=== PATIENT | female | born 1995 | race American Indian/Alaskan Native ===

== ENCOUNTER 2016-12-04 00:17 | Emergency (ER) | payer MEDICAID ==
[2016-12-04 00:21] VITALS: BMI 21.4
[2016-12-04 00:24] VITALS: RESP 16; TEMP 98.2
--- NOTE | 2016-12-04 01:55 | ED PDOC ---
Arrival/HPI - General Chief Complaint: ENT Problem Time Seen by Provider: 12/04/16 01:35 Historian: Patient - History of Present Illness Narrative History of Present Illness (Text): 12/04/16 02:24 21-year-old female presents today with a one-day history of sore throat and pain with swallowing. Denies fevers or chills. No chest pain or shortness of breath. 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 No medications have been taken for pain at home. Patient denies trismus or drooling. Denies cough. Symptom Onset: Gradual Symptom Course: Worsening Quality: Burning Severity Level: 3 Past Medical History - Provider Review Nursing Documentation Reviewed: Yes - Travel History Have you recently traveled outside [place] w/in the past 3 mons?: No - Past History Past History: No Previous - Infectious Disease Hx of Infectious Diseases: None - Tetanus Immunization Tetanus Immunization: Up to Date - Past Medical History Past Medical History: No Previous - Psychiatric Hx Substance Use: No - Anesthesia Hx Anesthesia: No Hx Anesthesia Reactions: No Hx Malignant Hyperthermia: No Family/Social History - Physician Review Nursing Documentation Reviewed: Yes Family/Social History: Unknown Family HX Smoking Status: Never Smoked Hx Alcohol Use: Yes Frequency of alcohol use: Socially Hx Substance Use: No Allergies/Home Meds Allergies/Adverse Reactions: Allergies No Known Allergies Allergy (Verified 02/12/16 06:53) Review of Systems - Review of Systems Constitutional: absent: Fatigue, Fevers ENT: Sore Throat. absent: Sinus Congestion Respiratory: absent: SOB, Cough Cardiovascular: absent: Chest Pain, Palpitations Gastrointestinal: absent: Abdominal Pain, Nausea, Vomiting Genitourinary Female: absent: Dysuria, Frequency Musculoskeletal: absent: Arthralgias, Back Pain Skin: absent: Rash, Pruritis Neurological: absent: Headache, Dizziness Physical Exam Vital Signs Reviewed: Yes Vital Signs Temp Pulse Resp BP Pulse Ox 12/04/16 00:23 98.2 F 90 16 116/71 100 Temperature: Afebrile Blood Pressure: Normal Pulse: Regular Respiratory Rate: Normal Appearance: Positive for: Well-Appearing, Non-Toxic, Comfortable Pain Distress: None Mental Status: Positive for: Alert and Oriented X 3 - Systems Exam Head: Present: Atraumatic Mouth: Present: Moist Mucous Membranes Pharnyx: Present: ERYTHEMA. No: Normal, EXUDATE, TONSILS ENLARGED, Peritonsilar Swelling, Uvular Deviation, Muffled/Hoarse Voice, Strider, Soft Palate/Uvular Edema Neck: Present: Normal Range of Motion Respiratory/Chest: Present: Clear to Auscultation, Good Air Exchange. No: Respiratory Distress, Accessory Muscle Use Cardiovascular: Present: Regular Rate and Rhythm, Normal S1, S2. No: Murmurs Neurological: Present: GCS=15, Speech Normal Skin: Present: Warm, Dry, Normal Color. No: Rashes Psychiatric: Present: Alert, Oriented x 3 Medical Decision Making ED Course and Treatment: 12/04/16 03:03 Patient is nontoxic well appearing in no distress. Vital signs are stable Tolerating p.o. fluids and solids motrin amoxicillin po I advised follow up with primary care physician within the next 2 days, advised to increase fluids take medications as prescribed and return if symptoms worsen persist or if new symptoms develop IMPRESSION; pharyngitis Motrin every 6 hours as needed for pain/fever reduction Increase fluids Amoxicillin 3 times daily x 10 days Follow up primary care physician within the next 2 days Saltwater gargles, throat lozenges Return if symptoms worsen persist or if the symptoms develop - Medication Orders Current Medication Orders: Discontinued Medications Amoxicillin (Amoxil 500 Mg Cap) 500 mg PO STAT STA PRN Reason: Protocol Stop: 12/04/16 01:36 Ibuprofen (Motrin Tab) 600 mg PO STAT STA Stop: 12/04/16 01:36 Disposition/Present on Arrival - Present on Arrival Any Indicators Present on Arrival: No History of DVT/PE: No History of Uncontrolled Diabetes: No Urinary Catheter: No History of Decub. Ulcer: No History Surgical Site Infection Following: None - Disposition Have Diagnosis and Disposition been Completed?: Yes Diagnosis: Pharyngitis Disposition: HOME/ ROUTINE Disposition Time: 01:36 Patient Plan: Discharge Condition: GOOD Discharge Instructions (ExitCare): Pharyngitis (ED) Additional Instructions: Motrin every 6 hours as needed for pain/fever reduction Increase fluids Amoxicillin; 3 times daily x10 days Follow up primary care physician within the next 2 days Saltwater gargles, throat lozenges Return if symptoms worsen persist or if the symptoms develop Prescriptions: Amoxicillin 500 mg PO TID #30 tab Ibuprofen [Motrin] 600 mg PO Q6H PRN #20 tab PRN Reason: pain/fever reduction Referrals: Juliano Chaney DO [Staff Provider] - Follow up with primary Bastianelli,[place], DO [Staff Provider] - Follow up with primary Forms: WORK NOTE
[2016-12-04 02:53] VITALS: BP 175/91; PULSE 77; O2SAT 99
[2016-12-04] MEDS ORDERED: Albuterol 0.083% Inhal Sol (2.5 mg/3 mL) UD ONE (22:02)
== END 2016-12-04 02:49 | disposition home or self-care (01) ==
LOC: ED 00:17
DX: J02.9 Acute pharyngitis, unspecified (principal)

== ENCOUNTER 2016-12-28 20:54 | Emergency (ER) | payer MEDICAID ==
[2016-12-28 21:08] VITALS: TEMP 98.3; BMI 21.6
--- NOTE | 2016-12-28 21:35 | ED PDOC ---
Arrival/HPI - General Historian: Patient - History of Present Illness Time/Duration: 1 week Context: Home - General Chief Complaint: Female Genitourinary Time Seen by Provider: 12/28/16 21:26 - History of Present Illness Narrative History of Present Illness (Text): 12/28/16 21:32 This 21 yo female presents to this ED c/o dysuria, urinary frequency, urgency x 1 week. Patient stated urine appears cloudy. Patient noted similar symptoms in the past and she was Dx. UTI. Patient denies fever, flank pain, n/v, weakness, paresthesias, hematuria, vaginal discharge, vaginal bleeding, sob, cp , or abnormal gait. (Parmjit Faye) Past Medical History - Provider Review Nursing Documentation Reviewed: Yes - Past History Past History: No Previous - Infectious Disease Hx of Infectious Diseases: None - Tetanus Immunization Tetanus Immunization: Up to Date - Past Medical History Past Medical History: No Previous - Psychiatric Hx Substance Use: No - Anesthesia Hx Anesthesia: No Hx Anesthesia Reactions: No Hx Malignant Hyperthermia: No Family/Social History - Physician Review Nursing Documentation Reviewed: Yes Family/Social History: No Known Family HX Smoking Status: Never Smoked Hx Alcohol Use: Yes Hx Substance Use: No Allergies/Home Meds Allergies/Adverse Reactions: Allergies No Known Allergies Allergy (Verified 02/12/16 06:53) Review of Systems - Review of Systems Constitutional: Normal. absent: Fatigue, Weight Change, Fevers Eyes: Normal ENT: Normal Respiratory: Normal. absent: SOB, Cough Cardiovascular: Normal. absent: Chest Pain, Palpitations Gastrointestinal: Normal. absent: Abdominal Pain, Nausea, Vomiting Genitourinary Female: Dysuria, Frequency. absent: Hematuria, Vaginal Bleeding, Vaginal Discharge Musculoskeletal: Normal Skin: Normal Neurological: Normal Endocrine: Normal Hemo/Lymphatic: Normal Psychiatric: Normal Physical Exam Temperature: Afebrile Blood Pressure: Normal Pulse: Regular Respiratory Rate: Normal Appearance: Positive for: Well-Appearing, Non-Toxic, Comfortable Pain Distress: None Mental Status: Positive for: Alert and Oriented X 3 - Systems Exam Head: Present: Atraumatic, Normocephalic Pupils: Present: PERRL Extroacular Muscles: Present: EOMI Conjunctiva: Present: Normal Mouth: Present: Moist Mucous Membranes Neck: Present: Normal Range of Motion Respiratory/Chest: Present: Clear to Auscultation, Good Air Exchange. No: Respiratory Distress, Accessory Muscle Use Cardiovascular: Present: Regular Rate and Rhythm, Normal S1, S2. No: Murmurs Abdomen: Present: Normal Bowel Sounds. No: Tenderness, Distention, Peritoneal Signs Genitourinary/Pelvic Exam: Present: Other (deferred by pt) Back: Present: Normal Inspection. No: CVA Tenderness, Midline Tenderness, Paraspinal Tenderness, Pain with Leg Raise Upper Extremity: Present: Normal Inspection. No: Cyanosis, Edema Lower Extremity: Present: Normal Inspection. No: Edema Neurological: Present: GCS=15, CN II-XII Intact, Speech Normal Skin: Present: Warm, Dry, Normal Color. No: Rashes Psychiatric: Present: Alert, Oriented x 3, Normal Insight, Normal Concentration Medical Decision Making Re-evaluation Time: 22:17 Reassessment Condition: Re-examined, Improved - Lab Interpretations I have reviewed the lab results: Yes Interpretation: Abnormal lab values (consisting with UTI) ED Course and Treatment: 12/28/16 22:17 Re-evaluation. Patient feels better. Discussed results and plan with patient who expresses understanding. All questions answered and there is agreement with the plan to discharge home with instructions. Patient stable for discharge. Return if symptoms persist or worsen. (Parmjit Faye) - Lab Interpretations Microbiology Results: Microbiology Results 12/28/16 22:50 Urine,Clean Catch Urine Culture - Final Escherichia Coli 12/28/16 21:50 Urine Urine Culture - Final Escherichia Coli Lab Results: Lab Results 12/28/16 21:50: Urine Color Yellow, Urine Appearance Sl cloudy, Urine pH 7.0, Ur Specific [place] 1.020, Urine Protein 100 H, Urine Glucose (UA) Negative, Urine Ketones Negative, Urine Blood Moderate H, Urine Nitrate Positive H, Urine Bilirubin Negative, Urine Urobilinogen 0.2, Ur Leukocyte Esterase Large H, Urine RBC 10 - 15, Urine WBC Tntc, Ur Epithelial Cells 3 - 4, Urine Bacteria Many, Urine HCG, Qual Negative - Medication Orders Current Medication Orders: Discontinued Medications Nitrofurantoin Macrocrystals (Macrobid) 100 mg PO STAT STA Stop: 12/28/16 21:36 Last Admin: 12/28/16 22:12 Dose: 100 mg Phenazopyridine HCl (Pyridium) 200 mg PO STAT STA Stop: 12/28/16 21:36 Last Admin: 12/28/16 22:12 Dose: 200 mg Disposition/Present on Arrival - Present on Arrival Any Indicators Present on Arrival: No History of DVT/PE: No History of Uncontrolled Diabetes: No Urinary Catheter: No History of Decub. Ulcer: No History Surgical Site Infection Following: None - Disposition Have Diagnosis and Disposition been Completed?: Yes Disposition Time: 22:18 Patient Plan: Discharge - Disposition Diagnosis: Acute cystitis Disposition: HOME/ ROUTINE Condition: GOOD Discharge Instructions (ExitCare): Urinary Tract Infection in Women (DC) Additional Instructions: Call private doctor for follow up visit in 1 day. Make sure to see your BIOPSYCHOLOGIST as scheduled by you. Drink plenty of fluids. Return to emergency if symptoms worsen. Prescriptions: Nitrofurantoin Macrocrystals [Macrobid] 100 mg PO BID #14 cap Phenazopyridine HCl [Pyridium] 200 mg PO TID #9 tablet Referrals: Edith Le MD [Primary Care Provider] - Follow up with primary Forms: WORK NOTE
[2016-12-28 22:09] LABS: URINE BILIRUBIN NEGATIVE (NEGATIVE); URINE BLOOD MODERATE (NEGATIVE); URINE GLUCOSE (UA) NEGATIVE (NEGATIVE); URINE KETONE NEGATIVE (NEGATIVE); URINE LEUKOCYTE ESTERASE LARGE Leu/uL (NEGATIVE); URINE PROTEIN 100 mg/dL (<30 mg/dL); URINE UROBILINOGEN 0.2 E.U./dL (<1 E.U./dL)
[2016-12-28 22:14] LABS: URINE APPEARANCE SL CLOUDY (CLEAR); URINE COLOR YELLOW (YELLOW)
[2016-12-28 22:20] LABS: URINE BACTERIA MANY (NEG); URINE WBC TNTC /hpf (0-6)
[2016-12-28 22:38] VITALS: BP 108/74; PULSE 73; RESP 14; O2SAT 97
== END 2016-12-28 22:38 | disposition home or self-care (01) ==
LOC: ED 20:54
DX: N30.00 Acute cystitis without hematuria (principal)

== ENCOUNTER 2017-01-10 09:30 | Emergency (ER) | payer MEDICAID ==
[2017-01-10 09:34] VITALS: BMI 21.9
[2017-01-10 09:36] VITALS: BP 103/71; PULSE 68; RESP 19; TEMP 98.2; O2SAT 99
--- NOTE | 2017-01-10 10:12 | ED PDOC ---
Arrival/HPI - General Chief Complaint: Female Genitourinary Time Seen by Provider: 01/10/17 10:10 Historian: Patient - History of Present Illness Narrative History of Present Illness (Text): 01/10/17 10:12 Mirian Odom Severity Level: Mild Activities at Onset: Light Past Medical History - Past History Past History: No Previous - Infectious Disease Hx of Infectious Diseases: None - Tetanus Immunization Tetanus Immunization: Up to Date - Past Medical History Past Medical History: No Previous - Psychiatric Hx Substance Use: No - Anesthesia Hx Anesthesia: No Family/Social History Smoking Status: Never Smoked Hx Alcohol Use: Yes Frequency of alcohol use: Socially Hx Substance Use: No Allergies/Home Meds Allergies/Adverse Reactions: Allergies No Known Allergies Allergy (Verified 01/10/17 09:33) Home Medications: Home Meds Medication Instructions Recorded Confirmed No Known Home Med 01/10/17 01/10/17 Physical Exam Vital Signs Temp Pulse Resp BP Pulse Ox 01/10/17 09:35 98.2 F 68 19 103/71 99 Disposition/Present on Arrival - Present on Arrival History of DVT/PE: No History of Uncontrolled Diabetes: No Urinary Catheter: No History of Decub. Ulcer: No History Surgical Site Infection Following: None - Disposition
--- NOTE | 2017-01-10 10:14 | ED PDOC ---
Arrival/HPI - General Chief Complaint: Female Genitourinary Time Seen by Provider: 01/10/17 10:10 Historian: Patient - History of Present Illness Narrative History of Present Illness (Text): 01/10/17 10:15 Mirian Odom is a 22 year old female, presents to the emergency department because she was unable to remove a tampon which she placed last night. Denies any fever, chills, abdominal pain, nausea, vomiting, diarrhea, or any other complaints at this time. Severity Level: Mild Activities at Onset: Light Past Medical History - Provider Review Nursing Documentation Reviewed: Yes - Past History Past History: No Previous - Infectious Disease Hx of Infectious Diseases: None - Tetanus Immunization Tetanus Immunization: Up to Date - Past Medical History Past Medical History: No Previous - Psychiatric Hx Substance Use: No - Anesthesia Hx Anesthesia: No Family/Social History - Physician Review Nursing Documentation Reviewed: Yes Family/Social History: No Known Family HX Smoking Status: Never Smoked Hx Alcohol Use: Yes Frequency of alcohol use: Socially Hx Substance Use: No Allergies/Home Meds Allergies/Adverse Reactions: Allergies No Known Allergies Allergy (Verified 01/10/17 09:33) Home Medications: Home Meds Medication Instructions Recorded Confirmed No Known Home Med 01/10/17 01/10/17 Review of Systems - Physician Review All systems were reviewed & negative as marked: Yes - Review of Systems Constitutional: Normal. absent: Fatigue, Fevers Respiratory: absent: SOB, Cough, Sputum Cardiovascular: absent: Chest Pain Genitourinary Female: Other (unable to remove tampon ). absent: Dysuria, Frequency, Hematuria Neurological: absent: Headache, Dizziness Physical Exam Vital Signs Reviewed: Yes Vital Signs Temp Pulse Resp BP Pulse Ox 01/10/17 09:35 98.2 F 68 19 103/71 99 Temperature: Afebrile Blood Pressure: Normal Pulse: Regular Respiratory Rate: Normal Appearance: Positive for: Well-Appearing, Non-Toxic, Comfortable Pain Distress: None Mental Status: Positive for: Alert and Oriented X 3 - Systems Exam Abdomen: Present: Normal Bowel Sounds. No: Tenderness, Distention, Peritoneal Signs, Rebound, Guarding Genitourinary/Pelvic Exam: Present: Normal External Genitalia, Other ( chaperoned by Yu TAYLOR. Speculum exam performed. Tampon removed without any difficulty. tampon appeared intact. ) Medical Decision Making ED Course and Treatment: 01/10/17 10:21 Impression: A 22 year old female who presents to the emergency department to remove a stuck tampon. Speculum exam performed, witnessed by Yu TAYLOR. Tampon removed without any difficulty. Progress Notes: 01/10/17 10:22 Patient is stable for discharge. Instructed to return to emergency department for discharge, pain or any other new symptoms. - Scribe Statement The provider has reviewed the documentation as recorded by the Olvinibe Caprice Carney Provider Attestation: Provider Scribe Attestation: All medical record entries made by the Scribe were at my direction and personally dictated by me. I have reviewed the chart and agree that the record accurately reflects my personal performance of the history, physical exam, medical decision making, and the department course for this patient. I have also personally directed, reviewed, and agree with the discharge instructions and disposition. Disposition/Present on Arrival - Present on Arrival Any Indicators Present on Arrival: No History of DVT/PE: No History of Uncontrolled Diabetes: No Urinary Catheter: No History of Decub. Ulcer: No History Surgical Site Infection Following: None - Disposition Have Diagnosis and Disposition been Completed?: Yes Diagnosis: Retained tampon Disposition: HOME/ ROUTINE Disposition Time: 10:12 Patient Plan: Discharge Patient Problems: Current Active Problems Problem Status Onset Retained tampon Acute Condition: GOOD Discharge Instructions (ExitCare): Vaginal Foreign Body (ED) Additional Instructions: PLEASE RETURN TO THE EMERGENCY DEPARTMENT FOR NEW OR WORSENING SYMPTOMS. RETURN RIGHT AWAY IF YOU CANNOT FOLLOW UP WITH YOUR PRIMARY CARE DOCTOR, CLINIC, OR SPECIALIST IN 1-2 DAYS. RETURN TO THE ER RIGHT AWAY FOR FEVERS, CHILLS, FREQ OR BURNING ON URINATION, VAGINAL OR PELVIC PAIN OR DISCHARGE Referrals: Adrian Mon DO [Staff Provider] - Follow up with primary
== END 2017-01-10 10:15 | disposition home or self-care (01) ==
LOC: ED 09:30
DX: T19.2XXA Foreign body in vulva and vagina, initial encounter (principal); X58.XXXA Exposure to other specified factors, initial encounter; Y93.89 Activity, other specified; Y92.89 Other specified places as the place of occurrence of the external cause

== ENCOUNTER 2017-01-14 00:49 | Emergency (ER) | payer MEDICAID ==
[2017-01-14 00:49] VITALS: BMI 21.9
[2017-01-14 00:59] VITALS: BP 123/64; TEMP 98
--- NOTE | 2017-01-14 01:14 | ED PDOC ---
Arrival/HPI - General Historian: Patient - History of Present Illness Time/Duration: Prior to Arrival Symptom Onset: Sudden Symptom Course: Unchanged Context: Work - General Chief Complaint: Bite Time Seen by Provider: 01/14/17 01:01 - History of Present Illness Narrative History of Present Illness (Text): 01/14/17 01:13 22 yo female with no significant PMH presented to ED with rash. Patient state that while at work she began to feel itchy and she noticed redness and hives on her abdomen. She stated that it was only located on her abdomen. She states that she placed alcohol pads on her abdomen which helped decrease the itching. Patient works at [employer] and denies any contact with new material, or new detergents and soaps. She denies fever, chills, sob, sore throat. PMD: Susan (Markos,Raquel) Past Medical History - Provider Review Nursing Documentation Reviewed: Yes - Past History Past History: No Previous - Infectious Disease Hx of Infectious Diseases: None - Tetanus Immunization Tetanus Immunization: Up to Date - Past Medical History Past Medical History: No Previous - Psychiatric Hx Substance Use: No - Anesthesia Hx Anesthesia: No Family/Social History - Physician Review Nursing Documentation Reviewed: Yes Family/Social History: No Known Family HX Smoking Status: Never Smoked Hx Alcohol Use: Yes Frequency of alcohol use: Socially Hx Substance Use: No Allergies/Home Meds Allergies/Adverse Reactions: Allergies No Known Allergies Allergy (Verified 01/14/17 00:56) Review of Systems - Review of Systems Constitutional: Normal. absent: Fatigue Eyes: Normal. absent: Vision Changes ENT: Normal. absent: Sore Throat, Rhinorrhea, Sinus Congestion Respiratory: Normal. absent: SOB, Cough, Wheezing Cardiovascular: Normal. absent: Chest Pain, Palpitations, Edema Gastrointestinal: Normal. absent: Abdominal Pain, Constipation, Diarrhea, Nausea, Vomiting Genitourinary Female: Normal. absent: Dysuria, Frequency, Hematuria Musculoskeletal: Normal. absent: Arthralgias, Back Pain, Myalgias Skin: Rash, Pruritis. absent: Laceration, Ulcer Neurological: Normal. absent: Headache, Dizziness, Gait Changes Endocrine: Normal. absent: Diaphoresis, Polyuria, Polydipsia Hemo/Lymphatic: Normal. absent: Easy Bleeding, Easy Bruising Psychiatric: Normal Physical Exam - Systems Exam Head: Present: Atraumatic, Normocephalic Pupils: Present: PERRL Extroacular Muscles: Present: EOMI Conjunctiva: Present: Normal Mouth: Present: Moist Mucous Membranes Neck: Present: Normal Range of Motion Respiratory/Chest: Present: Clear to Auscultation, Good Air Exchange. No: Respiratory Distress, Accessory Muscle Use, Wheezes, Rales, Rhonchi, Tachypneic Cardiovascular: Present: Regular Rate and Rhythm, Normal S1, S2. No: Murmurs, Tachycardic, Bradycardic Abdomen: Present: Normal Bowel Sounds. No: Tenderness, Distention, Peritoneal Signs Back: Present: Normal Inspection Upper Extremity: Present: Normal Inspection, NORMAL PULSES. No: Cyanosis, Edema , Tenderness, Swelling, Erythema Lower Extremity: Present: Normal Inspection. No: Edema, CALF TENDERNESS, Tenderness, Swelling Neurological: Present: GCS=15, CN II-XII Intact, Speech Normal Skin: Present: Warm, Dry, Rashes (macular-papular ), Normal Color Psychiatric: Present: Alert, Oriented x 3, Normal Insight, Normal Concentration Vital Signs Temp Resp BP 01/14/17 00:58 98.0 F 17 123/64 Medical Decision Making ED Course and Treatment: Impression: Pt seen and evaluated with director biomedical engineering. Pt, with no significant past medical history, presented with pruritic rash to her abdomen earlier tonight. Aware and agree with HPI, clinical findings, plan, and management. Plan: -- Hydrocortisone -- Reassess and disposition (Toby Andrade) 01/14/17 01:26 Impression: 22 yo female with no significant PMH presents with rash. Differential diagnoses includes but not limited to: - dermatitis plan: - hydrocortisone ointment 01/14/17 01:46 - patient is agreeable to be discharged home with prescription. She is to follow up with PMD in 1-2 days. If symptoms worsen she is to return to nearest ED. (Raquel Burrows) - Medication Orders Current Medication Orders: Discontinued Medications Hydrocortisone (Cortizone 1% Cream) 0 gm TOP ONCE ONE Stop: 01/14/17 01:17 Last Admin: 01/14/17 01:44 Dose: 1 applic Disposition/Present on Arrival - Present on Arrival Any Indicators Present on Arrival: No History of DVT/PE: No History of Uncontrolled Diabetes: No Urinary Catheter: No History of Decub. Ulcer: No History Surgical Site Infection Following: None - Disposition Have Diagnosis and Disposition been Completed?: Yes Disposition Time: 01:50 Patient Plan: Discharge - Disposition Diagnosis: Dermatitis Disposition: HOME/ ROUTINE Patient Problems: Current Active Problems Problem Status Onset Dermatitis Acute Condition: GOOD Discharge Instructions (ExitCare): Dermatitis (ED) Additional Instructions: Mirian Odom, thank you for letting us take care of you today. Your provider was Dr. Burrows and Dr. Austin. You were treated for dermatitis. The emergency medical care you received today was directed at your acute symptoms. If you were prescribed any medication, please fill it and take as directed. It may take several days for your symptoms to resolve. Return to the Emergency Department if your symptoms worsen, do not improve, or if you have any other problems. Please contact your doctor or call one of the physicians/clinics you have been referred to that are listed on the Patient Visit Information form that is included in your discharge packet. Bring any paperwork you were given at discharge with you along with any medications you are taking to your follow up visit. Our treatment cannot replace ongoing medical care by a primary care provider (PCP) outside of the emergency department. Thank you for allowing the [facility] team to be part of your care today. Prescriptions: Hydrocortisone 1% Oint [Cortizone 1% Oint] 1 appl TOP BID #1 tube Referrals: Edith Le MD [Medical Doctor] - Follow up with primary
[2017-01-14] MEDS ORDERED: Hydrocortisone 1% Cream (30 GM) TOP ONE (01:16)
[2017-01-14 01:58] VITALS: RESP 16; O2SAT 99
== END 2017-01-14 01:57 | disposition home or self-care (01) ==
LOC: ED 00:49
DX: L30.9 Dermatitis, unspecified (principal)

== ENCOUNTER 2017-03-13 20:56 | Emergency (ER) | payer MEDICAID ==
[2017-03-13 21:05] VITALS: BMI 22.4
[2017-03-13 21:09] VITALS: BP 116/81; PULSE 86; RESP 16; TEMP 98.1; O2SAT 100
--- NOTE | 2017-03-13 22:30 | ED PDOC ---
Arrival/HPI - General Historian: Patient - History of Present Illness Time/Duration: 4-6 hours Symptom Onset: Sudden Quality: Cramping Severity Level: 6 Activities at Onset: Rest Context: Sitting <Sabino Hazel - Last Filed: 03/13/17 23:38> <Toby Andrade - Last Filed: 03/17/17 08:56> - General Chief Complaint: Abdominal Pain Time Seen by Provider: 03/13/17 21:10 - History of Present Illness Narrative History of Present Illness (Text): 03/13/17 22:25 This is a 22 yr. old female with no significant past medical history who comes into [facility] complaining of right lower quadrant and left lower quadrant pain since 5 p.m. this afternoon. The patient describes the pain as cramping in nature with no radiation. The patient does report the pain getting better with laying down. The patient denies anything making the pain worse. The patient does report one episode of non-billious, non bloody vomiting that happened in conjunction with the abdominal pain. The patient also reports her urine changing color to a dark yellow in conjunction with the abdominal pain onset. The patient denies any fevers, chills, vaginal discharge , pain upon urination, lightheadedness, dizziness, weakness, chest pain, shortness of breath or any other complaints. (Sabino Hazel) Past Medical History - Provider Review Nursing Documentation Reviewed: Yes - Past History Past History: No Previous - Infectious Disease Hx of Infectious Diseases: None - Tetanus Immunization Tetanus Immunization: Up to Date - Past Medical History Past Medical History: No Previous - Psychiatric Hx Substance Use: No - Anesthesia Hx Anesthesia: No <Sabino Hazel - Last Filed: 03/13/17 23:38> Family/Social History - Physician Review Nursing Documentation Reviewed: Yes Family/Social History: No Known Family HX Smoking Status: Never Smoked Hx Alcohol Use: Yes Hx Substance Use: No <Sabino Hazel - Last Filed: 03/13/17 23:38> Allergies/Home Meds <Sabino Hazel - Last Filed: 03/13/17 23:38> <Toby Andrade - Last Filed: 03/17/17 08:56> Allergies/Adverse Reactions: Allergies No Known Allergies Allergy (Verified 01/14/17 00:56) Home Medications: Home Meds Medication Instructions Recorded Confirmed No Known Home Med 03/13/17 03/13/17 Review of Systems - Physician Review All systems were reviewed & negative as marked: Yes - Review of Systems Constitutional: Normal. absent: Fevers, Night Sweats Eyes: Normal. absent: Vision Changes, Eye Pain ENT: Normal. absent: Sore Throat, Rhinorrhea, Sinus Congestion Respiratory: Normal. absent: SOB, Cough, Sputum, Wheezing Cardiovascular: Normal. absent: Chest Pain, Palpitations Gastrointestinal: Abdominal Pain (located in RLQ and LLQ.), Vomiting (one episode of non-bilious, non bloody). absent: Constipation, Diarrhea, Nausea Genitourinary Female: Other (reports a change in color of urine to dark yellow) . absent: Dysuria, Frequency, Hematuria, Vaginal Discharge Musculoskeletal: Normal. absent: Back Pain, Myalgias Skin: Normal. absent: Rash, Laceration, Abscess Neurological: Normal. absent: Headache, Dizziness, Focal Weakness Endocrine: Normal. absent: Polyuria, Polydipsia Hemo/Lymphatic: Normal Psychiatric: Normal <Sabino Hazel - Last Filed: 03/13/17 23:38> Physical Exam Vital Signs Reviewed: Yes Temperature: Afebrile Blood Pressure: Normal Pulse: Regular Respiratory Rate: Normal Appearance: Positive for: Well-Appearing, Non-Toxic, Comfortable Pain Distress: None Mental Status: Positive for: Alert and Oriented X 3 - Systems Exam Head: Present: Atraumatic, Normocephalic Pupils: Present: PERRL. No: Sluggish Extroacular Muscles: Present: EOMI. No: Gaze Palsy Conjunctiva: Present: Normal. No: Injected Mouth: Present: Moist Mucous Membranes, Normal Tounge. No: Dry, Drooling Neck: Present: Normal Range of Motion. No: JVD, Lymphadenopathy Respiratory/Chest: Present: Clear to Auscultation, Good Air Exchange. No: Respiratory Distress, Accessory Muscle Use, Wheezes, Decreased Breath Sounds Cardiovascular: Present: Regular Rate and Rhythm, Normal S1, S2. No: Murmurs, Tachycardic, Bradycardic Abdomen: Present: Tenderness (RLQ and LLQ tenderness upon palpation noted.), Normal Bowel Sounds. No: Distention Back: Present: Normal Inspection. No: CVA Tenderness Upper Extremity: Present: Normal Inspection. No: Cyanosis, Edema Lower Extremity: Present: Normal Inspection. No: Edema Neurological: Present: CN II-XII Intact, Speech Normal Skin: Present: Dry, Normal Color. No: Warm, Rashes Psychiatric: Present: Alert, Oriented x 3, Normal Insight, Normal Concentration <Sabino Hazel - Last Filed: 03/13/17 23:38> Medical Decision Making <Sabino Hazel - Last Filed: 03/13/17 23:38> <Toby Andrade - Last Filed: 03/17/17 08:56> ED Course and Treatment: 03/13/17 22:35 This is a 22 female with no pertinent past medical history who comes into [facility] complaining of rlq and llq pain since 5p.m. this morning. I ordered cbc w/diff, cmp, u/a, lipase, and poc. The patient was given Toradol for the pain. The patient will be re-evaluated after lab results return. 03/13/17 23:07 Patient refused further workup including blood draws and imaging. Patient only allowed U/A to be completed. Patient decided to sign out AMA. Discussed with patient the possible consequences for not allowing us to do further workup, however patient refused. 03/13/17 23:13 Patient U/A returned and showed Urine protein high at 30, Urine urobilinogen high at 1.0, urine RBC 0-2 and urine WBC 1-3. Since patient denied further workup we were unable to determine the cause of her initial complaint. Patient differential at the time of her signing out AMA was : Appendicitis, Diverticulitis, Ovarian Cyst. 03/13/17 23:22 03/13/17 23:38 Discussed with patient to return to the E.D. if any new symptoms present or current symptoms worsen. (Sabino Hazel) Impression: Pt was seen and evaluated with pesticide use medical coordinator. Pt was seen and evaluated with pesticide use medical coordinator. Aware and agree with HPI, clinical findings, plan, and management. Aware and agree with HPI, clinical findings, plan, and management. Plan: -- US Transvaginal -- Labs, lipase -- Urinalysis -- Toradol -- Reassess and disposition 03/13/17 23:13 The patient is choosing to leave against medical advice. I have personally explained to the patient that choosing to do so may result in permanent bodily harm or . I have discussed at great length that without further evaluation and monitoring there may be unforeseen circumstances and/or deterioration causing permanent bodily harm or as a result of their choice. The patient is alert, oriented, and shows the mental capacity to make clear decisions regarding the patients health care at this time. The patient continues to wish to leave against medical advice. In light of the patients decision to leave against medical advice, follow-up has been arranged and the patient is aware of the importance to following up as instructed. The patient has been advised that they should return to the emergency room immediately if they change their mind at any time, or if their condition begins to change or worsen in any way.. (Toby Andrade) - Lab Interpretations Lab Results: Lab Results 03/13/17 22:28: Urine Color Yellow, Urine Appearance Clear, Urine pH 5.5, Ur Specific [place] >= 1.030, Urine Protein 30 H, Urine Glucose (UA) Negative, Urine Ketones Negative, Urine Blood Negative, Urine Nitrate Negative, Urine Bilirubin Negative, Urine Urobilinogen 1.0 H, Ur Leukocyte Esterase Negative, Urine RBC 0 - 2, Urine WBC 1 - 3, Ur Epithelial Cells 6 - 8, Amorphous Sediment Few - Medication Orders Current Medication Orders: Discontinued Medications Ketorolac Tromethamine (Toradol) 60 mg IM STAT STA Stop: 03/13/17 22:11 Last Admin: 03/13/17 22:56 Dose: Not Given Non-Admin Reason: Patient Refused - PA / GRIT REMOVAL OPERATOR / Resident Statement / has reviewed & agrees with the documentation as recorded. / has examined the patient and agrees with the treatment plan. <Toby Andrade - Last Filed: 03/17/17 08:56> Disposition/Present on Arrival - Present on Arrival Any Indicators Present on Arrival: No History of DVT/PE: No History of Uncontrolled Diabetes: No Urinary Catheter: No History of Decub. Ulcer: No History Surgical Site Infection Following: None - Disposition Have Diagnosis and Disposition been Completed?: No Disposition Time: 22:55 <Sabino Hazel - Last Filed: 03/13/17 23:38> - Present on Arrival Any Indicators Present on Arrival: No - Disposition Have Diagnosis and Disposition been Completed?: Yes <Toby Andrade - Last Filed: 03/17/17 08:56> - Disposition Diagnosis: Appendicitis Disposition: AGAINST MEDICAL ADVICE Condition: UNKNOWN Referrals: Stephanie Prescott DO [Primary Care Provider] - Follow up with primary Forms: [employer] ([place]), WORK NOTE
[2017-03-13 22:36] LABS: PH,URINE 5.5 (4.7-8.0); URINE BILIRUBIN NEGATIVE (NEGATIVE); URINE BLOOD NEGATIVE (NEGATIVE); URINE GLUCOSE (UA) NEGATIVE (NEGATIVE); URINE KETONE NEGATIVE (NEGATIVE); URINE LEUKOCYTE ESTERASE NEGATIVE Leu/uL (NEGATIVE); URINE PROTEIN 30 mg/dL (<30 mg/dL)
[2017-03-13 22:37] LABS: URINE APPEARANCE CLEAR (CLEAR); URINE COLOR YELLOW (YELLOW)
[2017-03-13 22:48] LABS: URINE AMORPHOUS SEDIMENT FEW; URINE RBC 0 - 2 /hpf (0-2)
== END 2017-03-13 23:10 | disposition left against medical advice (07) ==
LOC: ED 20:56
DX: K35.80 Unspecified acute appendicitis (principal)

== ENCOUNTER 2017-07-24 08:43 | Emergency (ER) | payer MEDICAID ==
[2017-07-24 09:11] VITALS: BMI 23.2
--- NOTE | 2017-07-24 09:14 | ED PDOC ---
Arrival/HPI - General Time Seen by Provider: 07/24/17 09:11 Historian: Patient - History of Present Illness Narrative History of Present Illness (Text): 07/24/17 09:11 This 22 yo female presents to this ED stating she has a yeast infection and requesting Diflucan. Patient stated she has a vaginal itching, and a white discharge "clumpy" x 2 days. Patient denies other somatic complains. She just want the medication, and she refused to have a pelvic exam. RN was present during medical interview. Time/Duration: Other (2 days) Context: Home Past Medical History - Provider Review Nursing Documentation Reviewed: Yes - Past History Past History: No Previous - Infectious Disease Hx of Infectious Diseases: None - Tetanus Immunization Tetanus Immunization: Up to Date - Past Medical History Past Medical History: No Previous - Psychiatric Hx Substance Use: No - Anesthesia Hx Anesthesia: No Family/Social History - Physician Review Nursing Documentation Reviewed: Yes Family/Social History: Other (noncontributory) Smoking Status: Never Smoked Hx Alcohol Use: No Hx Substance Use: No Allergies/Home Meds Allergies/Adverse Reactions: Allergies No Known Allergies Allergy (Verified 05/31/17 09:38) Review of Systems - Review of Systems Constitutional: Normal. absent: Fatigue, Weight Change, Fevers Eyes: Normal ENT: Normal Respiratory: Normal Cardiovascular: Normal Gastrointestinal: Normal Genitourinary Female: Vaginal Discharge, Other (see hpi) Musculoskeletal: Normal Skin: Normal Neurological: Normal Endocrine: Normal Hemo/Lymphatic: Normal Psychiatric: Normal Physical Exam Temperature: Afebrile Blood Pressure: Normal Pulse: Regular Respiratory Rate: Normal Appearance: Positive for: Well-Appearing, Non-Toxic, Comfortable Pain Distress: None Mental Status: Positive for: Alert and Oriented X 3 - Systems Exam Head: Present: Atraumatic, Normocephalic Mouth: Present: Moist Mucous Membranes Genitourinary/Pelvic Exam: Present: Other (refused examination by patient) Upper Extremity: Present: Normal Inspection, Normal ROM Lower Extremity: Present: Normal Inspection, Normal ROM Neurological: Present: GCS=15, CN II-XII Intact, Speech Normal Skin: Present: Warm, Dry, Normal Color. No: Rashes Psychiatric: Present: Alert, Oriented x 3, Normal Insight, Normal Concentration Medical Decision Making ED Course and Treatment: 07/24/17 09:15 Patient came requesting medication for yeast infection. Patient noted she had been using ABX recently. Patient denies other somatic complains. Denies STD exposure. Symptoms are similar from last 'yeast infection". Patient refused pelvic exam, and RN was presents during medical interview. Patient was advised about STD and to return to ED if symptoms persist or worsen. Re-evaluation Time: 09:17 Reassessment Condition: Re-examined, Unchanged Disposition/Present on Arrival - Present on Arrival Any Indicators Present on Arrival: No History of DVT/PE: No History of Uncontrolled Diabetes: No Urinary Catheter: No History Surgical Site Infection Following: None - Disposition Have Diagnosis and Disposition been Completed?: Yes Diagnosis: Vaginal itching, Vaginal discharge Disposition: HOME/ ROUTINE Disposition Time: :17 Patient Plan: Discharge Patient Problems: Current Active Problems Problem Status Onset Vaginal itching Acute Condition: GOOD Discharge Instructions (ExitCare): Vaginal Discharge (ED) Additional Instructions: Call private TOOL FILER HAND doctor or clinic for follow up visit in 1-2 days. Take medication as instructed in 2-3 days if symptoms persist. Return to emergency if symptoms worsen Prescriptions: Fluconazole [Diflucan] 150 mg PO DAILY PRN #1 tab PRN Reason: Itching / Pruritus
[2017-07-24 09:17] VITALS: BP 101/66; PULSE 84; RESP 18; TEMP 98.6; O2SAT 100
== END 2017-07-24 09:34 | disposition home or self-care (01) ==
LOC: ED 08:43
DX: N89.8 Other specified noninflammatory disorders of vagina (principal)

== ENCOUNTER 2017-08-17 17:36 | Emergency (ER) | payer MEDICAID ==
[2017-08-17 18:45] VITALS: BP 101/57; PULSE 68; RESP 16; TEMP 98.1; O2SAT 100; BMI 23.6
--- NOTE | 2017-08-17 19:27 | ED PDOC ---
Arrival/HPI - General Historian: Patient - History of Present Illness Time/Duration: Prior to Arrival Symptom Onset: Gradual Symptom Course: Unchanged, Worsening Severity Level: Moderate Activities at Onset: Rest, Sleeping Context: Sitting, Home <Leti Fleming - Last Filed: 08/17/17 20:27> <Edouard Rankin - Last Filed: 08/17/17 20:57> - General Chief Complaint: Female Genitourinary Time Seen by Provider: 08/17/17 18:36 - History of Present Illness Narrative History of Present Illness (Text): 08/17/17 19:19 Pt is 22 yo F c/o of recurring vaginal yeast infection. Pt states she had aggressive, protected sex on Wednesday, followed by vaginal irritation and frequent urination on Wednesday. Reports excessive white-clumpy, non-odorous vaginal discharge since Wednesday. Denies flank or low back pain, fever, chills, shortness of breath, nausea/vomiting, diarrhea, or . (Leti Fleming) Past Medical History - Provider Review Nursing Documentation Reviewed: Yes - Travel History Have you recently traveled outside [place] w/in the past 3 mons?: No - Past History Past History: No Previous - Infectious Disease Hx of Infectious Diseases: None - Tetanus Immunization Tetanus Immunization: Up to Date - Past Medical History Past Medical History: No Previous - Psychiatric Hx Substance Use: No - Anesthesia Hx Anesthesia: No <Leti Fleming - Last Filed: 08/17/17 20:27> Family/Social History - Physician Review Nursing Documentation Reviewed: Yes Family/Social History: No Known Family HX Smoking Status: Never Smoked Hx Alcohol Use: No Hx Substance Use: No <Leti Fleming - Last Filed: 08/17/17 20:27> Allergies/Home Meds <Leti Fleming - Last Filed: 08/17/17 20:27> <Edouard Rankin - Last Filed: 08/17/17 20:57> Allergies/Adverse Reactions: Allergies No Known Allergies Allergy (Verified 05/31/17 09:38) Review of Systems - Review of Systems Constitutional: Normal Eyes: Normal ENT: Normal Respiratory: Normal Cardiovascular: Normal Gastrointestinal: Normal Genitourinary Female: Normal, Vaginal Discharge (clumpy-white, non-odorous) Musculoskeletal: Normal Skin: Normal Neurological: Normal Endocrine: Normal Hemo/Lymphatic: Normal Psychiatric: Normal <Leti Fleming - Last Filed: 08/17/17 20:27> Physical Exam Vital Signs Reviewed: Yes Temperature: Afebrile Blood Pressure: Normal Pulse: Regular Respiratory Rate: Normal Appearance: Positive for: Well-Appearing, Non-Toxic, Comfortable Pain Distress: Mild Mental Status: Positive for: Alert and Oriented X 3 - Systems Exam Head: Present: Atraumatic, Normocephalic Pupils: Present: PERRL Extroacular Muscles: Present: EOMI Conjunctiva: Present: Normal Mouth: Present: Moist Mucous Membranes Neck: Present: Normal Range of Motion Respiratory/Chest: Present: Clear to Auscultation, Good Air Exchange. No: Respiratory Distress, Accessory Muscle Use Cardiovascular: Present: Regular Rate and Rhythm, Normal S1, S2. No: Murmurs Abdomen: Present: Normal Bowel Sounds. No: Tenderness, Distention, Peritoneal Signs Back: Present: Normal Inspection Upper Extremity: Present: Normal Inspection. No: Cyanosis, Edema Lower Extremity: Present: Normal Inspection. No: Edema Neurological: Present: GCS=15, CN II-XII Intact, Speech Normal Skin: Present: Warm, Dry, Normal Color. No: Rashes Psychiatric: Present: Alert, Oriented x 3, Normal Insight, Normal Concentration <Leti Fleming - Last Filed: 08/17/17 20:27> <Edouard Rankin - Last Filed: 08/17/17 20:57> Vital Signs Temp Pulse Resp BP Pulse Ox 08/17/17 18:42 98.1 F 68 16 101/57 L 100 Medical Decision Making <Leti Fleming - Last Filed: 08/17/17 20:27> <Edouard Rankin - Last Filed: 08/17/17 20:57> ED Course and Treatment: 08/17/17 20:20 Pt is 22 yo F c/o of recurring vaginal yeast infection. Reports clumpy-white vaginal discharge but declined a pelvic exam. On PE, no pelvic or flank tenderness on palpation. Plan: UA to r/o UTI hcg to r/o UA showed pos leukocyte esterase and wbc hcg neg Diflucan 150 mg po given in ER Dispo home with Macrobid 100 mg po bid x 7 days (Leti Fleming) - Lab Interpretations Lab Results: Lab Results 08/17/17 20:27: Urine HCG, Qual Negative 08/17/17 19:04: Urine Color Yellow, Urine Appearance Clear, Urine pH 6.5, Ur Specific [place] 1.020, Urine Protein Negative, Urine Glucose (UA) Negative, Urine Ketones Trace H, Urine Blood Negative, Urine Nitrate Negative, Urine Bilirubin Negative, Urine Urobilinogen 0.2, Ur Leukocyte Esterase Moderate H, Urine RBC 0 - 2, Urine WBC 15 - 20, Ur Epithelial Cells 6 - 8, Amorphous Sediment Few, Urine Bacteria Many, Urine Other Uyeast - Medication Orders Current Medication Orders: Discontinued Medications Fluconazole (Diflucan) 150 mg PO DAILY STA PRN Reason: Protocol Stop: 08/17/17 19:50 Last Admin: 08/17/17 20:29 Dose: 150 mg - PA / DRY CELL ASSEMBLY SUPERVISOR / Resident Statement MD/DO has reviewed & agrees with the documentation as recorded. <Edouard Rankin - Last Filed: 08/17/17 20:57> Disposition/Present on Arrival - Present on Arrival Any Indicators Present on Arrival: Yes History of DVT/PE: No History of Uncontrolled Diabetes: No Urinary Catheter: No History of Decub. Ulcer: No History Surgical Site Infection Following: None - Disposition Have Diagnosis and Disposition been Completed?: Yes Disposition Time: 19:55 Patient Plan: Discharge <Dana Flemingoraliam Devi - Last Filed: 08/17/17 20:27> <Edouard Rankin - Last Filed: 08/17/17 20:57> - Disposition Diagnosis: UTI (urinary tract infection), Vaginal yeast infection Disposition: HOME/ ROUTINE Patient Problems: Current Active Problems Problem Status Onset UTI (urinary tract infection) Acute Vaginal yeast infection Acute Condition: GOOD Discharge Instructions (ExitCare): Fluconazole (By mouth), Nitrofurantoin Combination (By mouth), Urinary Tract Infection in Women (ED), Vulvovaginal Candidiasis (ED) Additional Instructions: Dear Patient, If you experience worsening of symptoms such as high fever, shortness of breath , chest pain, bleeding on urination or any other alarming symptoms, please return to the emergency department for further evaluation. Please follow the handouts provided and have a speedy recovery. Follow up with your doctor in the next few days.You are advised to see your special needs caregiver as soon as possible for evaluation. Be Well Prescriptions: Nitrofurantoin Macrocrystals [Macrobid] 100 mg PO BID 7 Days #14 cap Referrals: Steff Murray [Primary Care Provider] - Follow up with primary Forms: [employer] ([place]rainian)
[2017-08-17 19:45] LABS: PH,URINE 6.5 (4.7-8.0); URINE BILIRUBIN NEGATIVE (NEGATIVE); URINE BLOOD NEGATIVE (NEGATIVE); URINE GLUCOSE (UA) NEGATIVE (NEGATIVE); URINE LEUKOCYTE ESTERASE MODERATE Leu/uL (NEGATIVE); URINE NITRATE NEGATIVE (NEGATIVE); URINE PROTEIN NEGATIVE mg/dL (<30 mg/dL); URINE UROBILINOGEN 0.2 E.U./dL (<1 E.U./dL)
[2017-08-17 19:47] LABS: URINE APPEARANCE CLEAR (CLEAR); URINE COLOR YELLOW (YELLOW)
[2017-08-17 19:55] LABS: URINE AMORPHOUS SEDIMENT FEW; URINE BACTERIA MANY (NEG); URINE RBC 0 - 2 /hpf (0-2); URINE WBC 15 - 20 /hpf (0-6)
== END 2017-08-17 21:01 | disposition home or self-care (01) ==
LOC: ED 17:36
DX: N39.0 Urinary tract infection, site not specified (principal); B37.3 Candidiasis of vulva and vagina